=== PATIENT | male | born 1950 | race Caucasian/White ===

== ENCOUNTER → 2016-08-18 | Outpatient (CLI) | payer MEDICARE | LOC: CARL-LAB 07:03 | DX: Z79.01 Long term (current) use of anticoagulants (principal) ==

== ENCOUNTER → 2016-09-01 | Outpatient (CLI) | payer MEDICARE | LOC: CARL-LAB 07:03 | DX: Z79.01 Long term (current) use of anticoagulants (principal) ==

== ENCOUNTER → 2016-09-17 | Outpatient (CLI) | payer MEDICARE | LOC: CARL-LAB 08:39 | DX: Z79.01 Long term (current) use of anticoagulants (principal); Z51.81 Encounter for therapeutic drug level monitoring ==

== ENCOUNTER → 2017-03-17 | Outpatient (CLI) | payer MEDICARE | LOC: CARL-LAB 09:37 | DX: Z79.01 Long term (current) use of anticoagulants (principal) ==

== ENCOUNTER → 2017-05-12 | Outpatient (CLI) | payer MEDICARE | LOC: CARL-LAB 08:48 | DX: Z79.01 Long term (current) use of anticoagulants (principal) ==

== ENCOUNTER → 2017-06-02 | Outpatient (CLI) | payer MEDICARE | LOC: CARL-LAB 08:22 | DX: Z79.01 Long term (current) use of anticoagulants (principal); Z51.81 Encounter for therapeutic drug level monitoring ==

== ENCOUNTER → 2017-06-26 | Outpatient (CLI) | payer MEDICARE | LOC: CARL-LAB 09:14 | DX: Z79.01 Long term (current) use of anticoagulants (principal); Z51.81 Encounter for therapeutic drug level monitoring ==